=== PATIENT | male | born 1965 | race Caucasian/White ===

== ENCOUNTER 2017-05-18 23:52 | Inpatient (IN) | payer OTHER ==
[~2017-05-18] VITALS: Ht 175.3 cm; Wt 54.4 kg
--- NOTE | 2017-05-19 00:50 | NUR ---
Intake Assessment Assessment done at intake office. Px is A&Ox4. Px is on a wheelchair due to unsteady gait. Speech is clear and audible. Px appears anxious and intoxicated. VS are as follows BP= 120/86, TX= 73, RR= 16, T= 97.0, O2sat= 100% in RA. Px has no complaints of pain at the moment. Px has NKA. Px is here for medically supervised withdrawal from ETOH. Px denies hx of seizure. Px didn't bring any home medications. Admission process will continue in the unit.
[2017-05-19] MEDS ORDERED: ONDANSETRON 4 MG/2 ML VIAL IM PRN (01:15)
[2017-05-19] MEDS ORDERED: ONDANSETRON ODT 4 MG TAB.RAPDIS SL PRN (01:15)
[2017-05-19] MEDS ORDERED: diphenhydrAMINE 50 MG CAPSULE PO PRN (01:15)
[2017-05-19] MEDS ORDERED: DICYCLOMINE HCL 20 MG TABLET PO PRN (01:15)
[2017-05-19] MEDS ORDERED: MAG HYDROX/AL HYDROX/SIMETH 30 ML LIQUID UDC PO PRN (01:15)
[2017-05-19] MEDS ORDERED: IBUPROFEN 400 MG TABLET PO PRN (01:15)
[2017-05-19] MEDS ORDERED: THIAMINE HCL 200 MG/2 ML VIAL IM ONE (01:15)
[2017-05-19] MEDS ORDERED: MAGNESIUM HYDROXIDE 30 ML LIQUID UDC PO PRN (01:15)
[2017-05-19] MEDS ORDERED: LORAZEPAM 1 MG TABLET PO PRN ×2 (01:15)
[2017-05-19] MEDS ORDERED: MIRALAX 17 GM POWD.PACK PO PRN (01:15)
[2017-05-19] MEDS ORDERED: LORAZEPAM 2 MG/1 ML VIAL IM PRN (01:15)
[2017-05-19] MEDS ORDERED: HYDROXYZINE PAMOATE 25 MG CAPSULE PO PRN (01:15)
[2017-05-19] MEDS ORDERED: LOPERAMIDE HCL 2 MG CAPSULE PO PRN ×2 (01:15)
[2017-05-19] MEDS ORDERED: ACETAMINOPHEN 325 MG TABLET PO PRN (01:15)
[2017-05-19] MEDS ORDERED: CLONIDINE HCL 0.1 MG TABLET PO PRN (01:15)
--- NOTE | 2017-05-19 01:30 | NUR ---
Vit B1 injection refused Px refused the Thiamine 100 mg injection. Px stated "I don't have energy to deal with that.. You can give that tomorrow." We'll continue to monitor.
--- NOTE | 2017-05-19 01:30 | NUR ---
Admission Note Nirav is 51 y/o male who is being admitted for medically supervised withdrawal from ETOH. Px appears intoxicated and is not currently experiencing withdrawals. Px smells alcohol. Px is blunt, angry, restricted and depressed. Px is A&Ox4. Eye contact is poor. CIWA 8. Px states he is dependent on ETOH- Wine, 750 ml daily for 6 months, last intake was 05/18/2017, 350 ml of wine. Nirav has been drinking for 20 years in irregular basis. Px states that he is seeking treatment today because he is drinking too much. Px stated that this is his first time in detox. Px was able to be sober for 9 months last 3 years ago. VS are as follows BP= 118/81, SC= 77, RR= 17, T= 97.1, O2sat= 99% on RA. Respirations are even and unlabored. Lung sounds are clear. Bowel sounds are active x 4 quadrants. Skin is intact. Nirav follows regular diet at home. Nirav has NKA. Nirav is 5'9" in height and weighs 120 lbs. Nirav quits smoking. Nirav has no primary care provider. Nirav denies any PMHx or hospitalizations. Nirav was educated about plan of care including detox, group therapy, individual therapy and discharge planning. Nirav was encouraged to open and tell the truth for the reason to help and take care of him better.
[2017-05-19 01:50] LABS: BASOPHILS % (AUTO) 1.2 % (0.0-2.0); EOSINOPHILS # (AUTO) 0.1 K/uL (0.0-0.7); EOSINOPHILS % (AUTO) 1.9 % (0.0-7.0); HEMATOCRIT 35.8 % (36.7-47.1); HEMOGLOBIN 12.2 g/dL (12.5-16.3); LYMPHOCYTES # (AUTO) 1.2 K/uL (20.0-40.0); LYMPHOCYTES % (AUTO) 37.7 % (20.5-51.5); MEAN CORPUSCULAR HEMOGLOBIN 32.7 uug (23.8-33.4); MEAN CORPUSCULAR HGB CONC 34 g/dL (32.5-36.3); MEAN CORPUSCULAR VOLUME 95.6 fL (73.0-96.2); MONOCYTES # (AUTO) 0.2 K/uL (2.0-10.0); MONOCYTES % (AUTO) 7.7 % (0.0-11.0); NEUTROPHILS # (AUTO) 1.6 K/uL (1.8-8.9); NEUTROPHILS % (AUTO) 51.5 % (38.5-71.5); PLATELET COUNT (AUTO) 201 K/uL (152-348); RED BLOOD CELL COUNT(AUTO) 3.75 MIL/uL (4.06-5.63); WHITE BLOOD COUNT (AUTO) 3.2 K/uL (3.6-10.2)
[2017-05-19 02:15] LABS: BILIRUBIN,TOTAL 0.3 mg/dL (0.2-1.0); CREATININE 0.8 mg/dL (0.6-1.3); POTASSIUM 3.8 mmol/L (3.5-5.1); TOTAL PROTEIN, SERUM 7.2 g/dL (6.4-8.2)
[2017-05-19 02:28] LABS: THYROID STIMULATING HORMONE 1.522 mIU/mL (0.358-3.740)
[2017-05-19 04:00] VITALS: BP 95/68
--- NOTE | 2017-05-19 07:23 | NUR ---
End of Shift Nurse Nirav is in 1 to 1 observation due to unsteady gait secondary to intoxication. During the shift, nirav slept most of the time. Nirav refused to take his Thiamine 100 mg IM injection. No urine given for UDS. Px didn't take any liquids. No BM. At 0630, nirav is asleep on bed in right side lying position. We'll continue to monitor. Px endorsed to AM shift nurse.
--- NOTE | 2017-05-19 07:30 | NUR ---
START OF SHIFT Pt 51 y/o male admitted for etoh withdrawal. Pt received in room on bed with eyes closed resting, but easily arousable to name. Pt alert and oriented to name, place, and time. Perrla. Respirations even and unlabored. Pt with sitter 1:1 to monitor for safety. Pt appears disheveled and unkempt. Clothes scattered throughout the room. Encouraged to maintain hygiene. It was reported that pt slept for 5 hours last night. last reported ciwa=8 @ 0130. Pt is on a prn ativan. Bed on lowest position with side rails x2 up for safety. Call light within reach. Sitter 1:1 remains with pt to monitor for safety.
[2017-05-19 08:00] VITALS: BP 113/60
[2017-05-19] MEDS: THIAMINE HCL 100 MG TABLET PO SCH (09:25)
[2017-05-19] MEDS: FOLIC ACID 1 MG TABLET PO SCH (09:25)
[2017-05-19] MEDS: MULTIVITAMINS,THERAPEUTIC TABLET PO SCH (09:25)
--- NOTE | 2017-05-19 09:27 | NUR ---
PRN pt states has headache 5/10. Motrin po prn per MD order given and tolerated well.
[2017-05-19] MEDS ORDERED: NICOTINE 14 MG/24HR PATCH TD PRN (10:15)
--- NOTE | 2017-05-19 10:27 | NUR ---
PRN EVAL Pt states headache 04/02.
--- NOTE | 2017-05-19 10:54 | NUR ---
Clarification on Substance Use/Treatment History: Patient acutely intoxicated upon admission and therefore was a poor historian. In the last three years, patient has only had a "short period" of sobriety recently while living in [facility]. Merged With [facility] staff discovered patient acutely intoxicated on the premises of RTC. Patient's longest period of sobriety was for 6 months in 2015.
[2017-05-19 12:00] VITALS: BP 117/74
--- NOTE | 2017-05-19 14:55 | NUR ---
TREATMENT HISTORY Pt states was at: [facility] - [facility] [place] 04/2017 - [facility] 02/2017
[2017-05-19 16:00] VITALS: BP 120/82
[2017-05-19 16:04] LABS: *AMPHETAMINE, URINE NEGATIVE (NEGATIVE); *BARBITURATE, URINE NEGATIVE (NEGATIVE); *CANNABINOID, URINE NEGATIVE (NEGATIVE); *COCCAINE, URINE NEGATIVE (NEGATIVE); *OPIATE, URINE NEGATIVE (NEGATIVE); *PHENCYCLIDINE SCREEN,URINE NEGATIVE (NEGATIVE)
--- NOTE | 2017-05-19 18:33 | NUR ---
END OF SHIFT Pt 51 y/o male admitted for etoh withdrawal. Pt alert and oriented to name, place, and time. Perrla. Skin warm to touch. Respirations even and unlabored. Pt appears disheveled and unkempt. Clothes scattered throughout the room. Pt appears with low motivation for self care. Encouraged to maintain hygiene. Pt observed isolative to room throughout the day. Pt did not attend group activity today. Pt was seen by MD today. Pt medication compliant and tolerated well. No ASE noted. Pt is on a prn ativan. Last ciwa=3@0800, 4@1200, and 4@1600. Bed on lowest position with side rails x2 up for safety. Call light within reach.
[2017-05-19 20:00] VITALS: BP 117/68
[2017-05-20] VITALS: BP 116/75
[2017-05-20 04:00] VITALS: BP 101/70
--- NOTE | 2017-05-20 06:47 | NUR ---
End of Shift Pt is a 51 y/o male admitted 05/19/17 approximately 1400 for medically managed withdrawal/detox from ETOH. No scheduled or PRN meds given during night. Pt sleeping intermittently with occasional strolls through halls. No c/o pain, diaphoresis, auditory, visual or tactile hallucinations, VS's stable, CIWA 4 all 3 assessments. Pt slept for 5+ hours, with 1105 mls intake and 1 voids, 0 BM's. Will continue to monitor pt and attend to all needs promptly before giving endorsement to day nurse.
--- NOTE | 2017-05-20 07:30 | NUR ---
START OF SHIFT Pt 51 y/o male admitted for etoh withdrawal. Pt received in room on bed awake watching television. Pt alert and oriented to name, place, and time. Perrla. Respirations even and unlabored. Pt appears disheveled and unkempt. Empty bottles and clothes scattered throughout the room. Encouraged to maintain hygiene. It was reported that pt slept for 6 hours last night. last reported ciwa=4 @ 2100. Pt is on a prn ativan. Bed on lowest position with side rails x2 up for safety. Call light within reach.
[2017-05-20 08:00] VITALS: BP 108/72
[2017-05-20] MEDS ORDERED: TUBERCULIN,PURIF.PROT.DERIV. 5 TU/0.1 ML TEST ID ONE (09:00)
[2017-05-20] MEDS: FOLIC ACID 1 MG TABLET PO SCH (09:35)
[2017-05-20] MEDS: MULTIVITAMINS,THERAPEUTIC TABLET PO SCH (09:36)
[2017-05-20] MEDS: THIAMINE HCL 100 MG TABLET PO SCH (09:36)
[2017-05-20 11:11] LABS: HEPATITIS B SURFACE AG Negative (Negative)
[2017-05-20 12:00] VITALS: BP 115/79
[2017-05-20] MEDS ORDERED: DIPH50CA37 PO (15:02)
[2017-05-20] MEDS ORDERED: IBUP-1953 PO (15:02)
[2017-05-20] MEDS ORDERED: CLON0.1T14 PO (15:02)
[2017-05-20 16:00] VITALS: BP 114/82
--- NOTE | 2017-05-20 19:15 | NUR ---
Start of Shift Note: Received patient from day shift nurse. Patient is a 51 y.o male admitted on 05/19/17 for medically supervised withdrawal from ETOH. Patient is alert & oriented x4. Patient is withdrawn, has a flat affect and has an anxious/irritable mood. Patient is isolative and stays in his room most of the time. Patient is on PRN Ativan for s/s of withdrawals. Last CIWA noted is 4 at 1600. No PRN medications received during day shift. Encourage pt to increase fluid intake. Educated patient of current plan of care for the night. Safety measures in place. Will continue to monitor patient.
--- NOTE | 2017-05-20 19:26 | NUR ---
END OF SHIFT Pt 51 y/o male admitted for ETOH withdrawal. Pt alert and oriented to name, place, and time. Perrla. Skin warm to touch. Respirations even and unlabored. Pt appears disheveled and unkempt. Empty bottles scattered throughout the room. Encouraged to maintain hygiene. Pt observed isolative to room throughout the day. Pt attended group activity today. Pt was seen by MD today. Pt medication compliant and tolerated well. No ASE noted. Pt is on a prn ativan. Last ciwa=3@0800, 3@1200, and 4@1600. Bed on lowest position with side rails x2 up for safety. Call light within reach.
[2017-05-20 20:00] VITALS: BP 123/79
--- NOTE | 2017-05-21 04:00 | NUR ---
Vitals/Ciwa deferred Patient refused vitals at this time. Patient asleep in bed and appears calm and comfortable. No shortness of breath noted. Unable to assess CIWA at this time. Will continue to monitor patient.
--- NOTE | 2017-05-21 07:22 | NUR ---
End of Shift Note: Pt is a 51 y.o male admitted for medically supervised withdrawal from ETOH. Pt is on PRN Ativan available for s/s of withdrawal. Pt remains alert & oriented x4. Vitals noted WNL with no abnormalities noted. Continue to closely monitor signs and symptoms of withdrawal. Last CIWA 4. No PRN medications given during my shift. Pt remains stable at this time. Pt in bed and appears comfortable. Pt slept for a total of 7 hours. Fluid intake: 592ml. Voided 2x with no bowel movement noted. All needs attended & met. Safety measures in place. Will endorse pt to day shift nurse.
--- NOTE | 2017-05-21 07:30 | NUR ---
START OF SHIFT Pt 51 y/o male admitted for etoh withdrawal. Pt received in room on bed awake watching television. Pt alert and oriented to name, place, and time. Perrla. Respirations even and unlabored. Pt appears disheveled and unkempt. Food wrappings and clothes scattered throughout the room. Encouraged to maintain hygiene. It was reported that pt slept for 7 hours last night. last reported ciwa=4 @ 2100. Pt is on a prn ativan. Bed on lowest position with side rails x2 up for safety. Call light within reach.
[2017-05-21 08:00] VITALS: BP 130/78
[2017-05-21] MEDS: FOLIC ACID 1 MG TABLET PO SCH (08:34)
[2017-05-21] MEDS: MULTIVITAMINS,THERAPEUTIC TABLET PO SCH (08:34)
[2017-05-21] MEDS: THIAMINE HCL 100 MG TABLET PO SCH (08:34)
[2017-05-21 12:00] VITALS: BP 128/64
[2017-05-21] MEDS: NICOTINE POLACRILEX 4 MG GUM-PK OF TEN BC PRN ×3 (12:30→18:45)
--- NOTE | 2017-05-21 12:31 | NUR ---
PRN Pt states has nicotine craving. Nicotine gum given and tolerated well.
--- NOTE | 2017-05-21 15:27 | NUR ---
PRN Pt states has nicotine craving. Nicotine gum prn per MD order given and tolerated well.
[2017-05-21 16:00] VITALS: BP 129/90
--- NOTE | 2017-05-21 18:46 | NUR ---
PRN Pt states has nicotine craving. Nicotine gum prn per MD order given and tolerated well.
--- NOTE | 2017-05-21 18:50 | NUR ---
END OF SHIFT Pt 51 y/o male admitted for ETOH withdrawal. Pt alert and oriented to name, place, and time. Perrla. Skin warm to touch. Respirations even and unlabored. Pt appears disheveled and unkempt. Encouraged to maintain hygiene. Pt observed isolative to room throughout the day. Pt attended group activity today. Pt was seen by MD today. Pt medication compliant and tolerated well. No ASE noted. Pt is on a prn ativan. Last ciwa=4@0800, 4@1200, and 4@1600. Bed on lowest position with side rails x2 up for safety. Call light within reach. Pt is scheduled to be discharged tomorrow.
--- NOTE | 2017-05-21 19:15 | NUR ---
Start of Shift Note: Received patient from day shift nurse. Patient is a 51 y.o male admitted on 05/19/17 for medically supervised withdrawal from ETOH. Patient is alert & oriented x4. Patient is withdrawn, has a flat affect and reports feeling of anxiety d/t discharge. Patient is isolative and stays in his room most of the time. Patient is scheduled to be discharge to [facility] tomorrow morning. Last CIWA noted is 4 at 1600. No PRN medications received during day shift. Encourage pt to increase fluid intake. Educated patient of current plan of care for the night. Safety measures in place. Will continue to monitor patient.
[2017-05-21 20:00] VITALS: BP 141/88
--- NOTE | 2017-05-21 20:45 | NUR ---
PRN Clonidine B/P141/, ND 79 noted. PRN Clonidine administered as ordered. Will continue to monitor patient.
[2017-05-22] MEDS: NICOTINE POLACRILEX 4 MG GUM-PK OF TEN BC PRN ×3 (04:07→09:11)
--- NOTE | 2017-05-22 04:07 | NUR ---
PRN Nicotine gum Patient complained of cravings to smoke. PRN Nicotine gum administered and tolerated well.
--- NOTE | 2017-05-22 06:56 | NUR ---
End of Shift Note: Pt is a 51 y.o male admitted for close monitoring of s/s of withdrawal from Alcohol. Pt is scheduled to be discharge to [facility] today. Pt is alert & oriented x4. Patient remains stable and Vitals noted WNL with no abnormalities noted. Last CIWA 4. Pt received PRN Clonidine for increased in blood pressure and Nicotine gum for cravings and was effective. Pt slept for a total of 5 hours. Fluid intake: 500ml. Voided 2x with no bowel movement noted. Encourage pt to increase fluid intake. All needs attended & met. Safety measures in place. Will endorse pt to day shift nurse.
--- NOTE | 2017-05-22 07:02 | NUR ---
PRN Nicotine gum Patient complained of cravings to smoke. PRN Nicotine gum administered as ordered.
--- NOTE | 2017-05-22 07:24 | NUR ---
START OF SHIFT PATIENT IS A 51 YR OLD MALE ADMITTED TO [facility] ON 05/19/17 FOR WITHDRAWAL FROM ALCOHOL. PATIENT IS TO BE DISCHARGED TODAY TO " [facility] ". PATIENT IS AWAKE AND WANDERING THE HALLS AT THIS TIME REQUESTING NICOTINE GUM. PRN CLONIDINE GIVEN ON PM SHIFT. LAST CIWA 4 AND PT SLEPT FOR 5 HOURS. WILL CONTINUE TO FOLLOW MD DISCHARGE ORDERS.
[2017-05-22 08:00] VITALS: BP 140/96
[2017-05-22] MEDS: MULTIVITAMINS,THERAPEUTIC TABLET PO SCH (08:03)
[2017-05-22] MEDS: FOLIC ACID 1 MG TABLET PO SCH (08:03)
[2017-05-22] MEDS: THIAMINE HCL 100 MG TABLET PO SCH (08:03)
--- NOTE | 2017-05-22 08:11 | NUR ---
[facility] Discharge papers signed. No home meds
--- NOTE | 2017-05-22 09:11 | NUR ---
Nicotine gum given: Patient requested for nicotine gum for smoking cessation. Gum was administered as ordered.
--- NOTE | 2017-05-22 09:20 | NUR ---
Pt discharged in stable condition with all valuables and belongings. No home meds. Denies SI/HI. Pt to [facility] via private car [facility]
== END 2017-05-22 09:20 | disposition other institution (70) | DRG 895 ==
LOC: SRC 05-19 00:28
PROVIDERS: ADMIT Internal Medicine; ATTEND Internal Medicine
PROC: HZ31ZZZ Individual Counseling for Substance Abuse Treatment, Behavioral (ICD-10-PCS; principal; 2017-05-19)
PROC: HZ41ZZZ Group Counseling for Substance Abuse Treatment, Behavioral (ICD-10-PCS; principal; 2017-05-19)
PROC: HZ2ZZZZ Detoxification Services for Substance Abuse Treatment (ICD-10-PCS; principal; 2017-05-19)
DX: F10.239 Alcohol dependence with withdrawal, unspecified (principal); D64.9 Anemia, unspecified; F17.210 Nicotine dependence, cigarettes, uncomplicated; Y90.8 Blood alcohol level of 240 mg/100 ml or more; F41.9 Anxiety disorder, unspecified; Z59.1 Inadequate housing; D72.819 Decreased white blood cell count, unspecified
CPT/HCPCS: 36415; 70030-TC; 80307; 83690; 83735; 84443; 85025; 86580; 86592; 86705; 86803; 87340; 87806; A4663; G0480